=== PATIENT | female | born 1980 | race Caucasian/White ===

== ENCOUNTER 2023-03-11 13:06 | Outpatient (REF) | payer OTHER, SELFPAY ==
[2023-03-12 13:54] LABS: Transglutaminase Ab IgG <1.0 U/mL; Transglutaminase IgA <1.0 U/mL
== END 2023-03-11 13:07 | disposition home or self-care (01) ==
LOC: HO.LAB 13:06
PROVIDERS: PCP Hospitalist; Visit Provider Nurse Practitioner
DX: R19.7 Diarrhea, unspecified (principal)
CPT/HCPCS: 36415; 86003; 86364

== ENCOUNTER 2023-03-11 13:06 | Outpatient (AMB) | payer OTHER, SELFPAY ==
--- NOTE | 2023-03-11 13:08 | MHC.OFFVIS ---
Intake Vital Signs 03/11/23 13:38 Height 5 ft 8 in Weight 151 lb 3.794 oz BMI 23.0 BP 149/97 H Blood Pressure Location Rt brachial Position Sitting Pulse 105 H Intake Visit Reasons: Diarrhea constipation Intake Note: Patient presents to in office visit today as a new patient for diarrhea. CC: diarrhea, constipation, nausea, indigestion, abdominal pain, heartburn, GERD, and poor appetite. Patient reports onset of symptoms on December 27, 2022. She reports she is lactose intolerant and have been avoiding it, and she is also avoiding gluten. She states she was taking Prilosec for a while and that helped with symptoms. Hydramatic Mechanic Required: No Accompanied by: Self / Same As Patient Allergies Penicillins Allergy (Severe, Verified 03/11/23 13:42) Anaphylaxis HPI Diarrhea constipation HPI Details 42-year-old female here for initial evaluation of diarrhea. She is referred by Radha Griggs MD. of [facility]. PMX Smoker Depression/anxiety Migraines Constipation Nephrolithiasis History of gestational diabetes Obsessive-compulsive disorder TMJ * SURGICAL HISTORY pt denies LEEP Tubal ligation * ALLERGIES Penicillin-anaphylaxis * Fantastic.cl LABS: none in our system PCP labs , CBC shows macrocytosis of 101 (B 12 def no ETOH) otherwise normal, liver and renal panel normal, negative stool series including lactoferin and fecal calprotectin. B 12 was acutally low normal 02/01, TSH low normal. TODAY'S VISIT Her problems started suddenly in December, she was on a medication (cloperimide and tran) that had her with CIC, but when this was stopped all fo her problems started. She was seen in a local walk in, and she was given nausea medication, zofran, which helped with the nausea but no other sx. She was on the BRAT diet and has not been able to advance her diet. She tried going lactose and gluten free. This helped a little bit but she had continued nausea and HB. Then she started taking prilosec which helped the HB and some of the stomach pain. The pain is mostly in the lower abd and around the umbilicus, at times 6-7/10 but after prilosec is 5/10 all day every day. At times the pain is sharp and at times sore. The upper stomach hurts more in the am and she has more nausea, at times eating worsens it, but not always. She stopped taking prilosec r/t it said only 2 weeks on box. She has not nausea meds right now. CUrrently she wakes up every day and feels like I have the flu, and she has diarrhea for 1/2 of the day, she has constant nausea and dry heaving and abd pain. She says her PCP did stool samples and they didn't find anything. These were not supplied to me. She shows me pt portal. NO known FHX of similar sx except an paternal aunt with GB adn IBS. ROV 4 weeks. [facility] Medical History (Updated 03/11/23 @ 14:14 by NIEVES Stanley) History of gestational diabetes Surgical History (Updated 03/11/23 @ 13:44 by JAMIL Sotelo) History of tubal ligation S/P LEEP Family History (Updated 03/11/23 @ 13:45 by JAMIL Sotelo) Mother Cervical cancer Ovarian cancer Social History (Updated 03/11/23 @ 13:44 by JAMIL Sotelo) Alcohol intake: never Patient Tobacco Use Status: Former Tobacco user Quit Date: 2021 Tobacco use type: Cigarette Review of Systems Const Reports fatigue, Denies fever(s), Reports malaise, Denies night sweats, Denies poor appetite and Denies weight loss Eyes Details: glasses Reports requires corrective lenses ENT Reports Normal hearing present, Denies dental pain, Denies dysphagia, Denies hearing loss, Denies mouth pain, Denies odynophagia, Denies throat swelling, Denies tongue swelling and Reports other (Dentition adequate) Card Reports no additional complaints Resp Reports no additional complaints GI Reports abdominal pain, Denies melena, Reports bloating, Denies hematochezia, Denies constipation, Denies GI cramping, Denies dysphagia, Denies excessive flatus, Denies early satiety, Reports heartburn, Reports diarrhea, Denies nausea, Denies odynophagia, Denies vomiting and Denies hematemesis Musc Reports myalgias Skin/Breast Denies pruritus, Denies lesions, Denies rash and Denies jaundice Neuro Reports Normal hearing present and Denies Abnormal speech present Endo Reports fatigue Aller/Immun Denies throat swelling and Denies tongue swelling Physical Exam Vital Signs: Last Vital Signs Pulse 105 H 03/11/23 13:38 BP 149/97 H 03/11/23 13:38 BMI result Body Mass Index 23.0 Const General: cooperative, no acute distress, well developed and well groomed Nutritional Appearance: average body habitus and well nourished Orientation/consciousness: oriented to person, oriented to place and oriented to time Limitations: No language barrier HEENT Head: Yes normocephalic and Yes atraumatic Eyes General: appearance normal, both eyes and all related structures Pupils: Equal, round and reactive pupils present Neck Neck: Yes normal visual inspection and Yes no lymphadenopathy Thyroid: Thyroid normal Resp Effort & Inspection: normal respiratory effort and able to speak in complete sentences Auscultation: clear to auscultation bilaterally Cardio Rate: regular rate Rhythm: regular rhythm Heart sounds: Normal, physiologic split S2 sound present Peripheral pulses: radial pulses present and posterior tibial pulses present GI Inspection: No distended and No Abdominal panniculus present Palpation (GI): Soft to palpation, Tenderness to palpation present (GI) periumbilically, no guarding, not rigid and No hepatosplenomegaly present Percussion: Yes normal to percussion Auscultation: Hyperactive bowel sounds present Rectal Exam - Female: deferred Skin Other: multiple tattoos on upper body General skin exam: no rashes or lesions noted, turgor normal, skin not dry, no jaundice, No spider nevi and no striae Rashes: no rashes Nails: normal Neuro General: oriented to person, oriented to place and oriented to time Cranial nerves: Yes Equal, round and reactive pupils present and Yes Normal hearing present Speech: No Abnormal speech present Extrem General: Yes normal to inspection, No clubbing, No cyanosis and No edema Psych Appearance: grossly normal and well kempt Mental Status: mental status grossly normal Speech and movement: Normal speech and movement present Affect: normal affect Attitude: cooperative Thought process: Normal thought process present and not confabulating Thought content: Normal thought content present Insight: Fair insight present (Psych) Judgement: Fair judgement present (Psych) Assessment & Plan Assessment & Plan (1) GERD (gastroesophageal reflux disease): Code(s): K21.9 - Gastro-esophageal reflux disease without esophagitis Plan: Her problems started suddenly in December, she was on a medication (cloperimide and tran) that had her with CIC, but when this was stopped all fo her problems started. She was seen in a local walk in, and she was given nausea medication, zofran, which helped with the nausea but no other sx. She was on the BRAT diet and has not been able to advance her diet. She tried going lactose and gluten free. This helped a little bit but she had continued nausea and HB. Then she started taking prilosec which helped the HB and some of the stomach pain. The pain is mostly in the lower abd and around the umbilicus, at times 6-7/10 but after prilosec is 5/10 all day every day. At times the pain is sharp and at times sore. The upper stomach hurts more in the am and she has more nausea, at times eating worsens it, but not always. She stopped taking prilosec r/t it said only 2 weeks on box. She has not nausea meds right now. CUrrently she wakes up every day and feels like I have the flu, and she has diarrhea for 1/2 of the day, she has constant nausea and dry heaving and abd pain. She says her PCP did stool samples and they didn't find anything. These were not supplied to me. She shows me pt portal. NO known FHX of similar sx except an paternal aunt with GB adn IBS. ROV 4 weeks. (2) Diarrhea: Code(s): R19.7 - Diarrhea, unspecified (3) Nausea and vomiting: Code(s): R11.2 - Nausea with vomiting, unspecified Orders: Orders H Pylori Breath Test 03/11/23 R19.7 - Diarrhea, unspecified Transglutaminase IgA 03/11/23 R19.7 - Diarrhea, unspecified Rast Allergen 03/11/23 R19.7 - Diarrhea, unspecified Pancreatic Elastase-1 03/11/23 R19.7 - Diarrhea, unspecified US abdomen complete 03/11/23 R19.7 - Diarrhea, unspecified EGD/[place] Combo - GI Use Only 03/11/23 R19.7 - Diarrhea, unspecified, R11.2 - Nausea with vomiting, unspecified Transglutaminase Ab IgG 03/11/23 R19.7 - Diarrhea, unspecified Medications: New sucralfate (Carafate) 2 grams (2 x 1 gram) PO QAM 60 tabs 3RF R19.7 - Diarrhea, unspecified pantoprazole (Protonix) 40 mg PO DAILY 30 tabs 6RF 30 days K21.9 - Gastro-esophageal reflux disease without esophagitis Coding Level of Care Code New Pt Level 3 (48664) Diagnoses GERD (gastroesophageal reflux disease) K21.9 Diarrhea R19.7 Nausea and vomiting R11.2
[2023-03-11 13:38] VITALS: BP 149/97; PULSE 105; BMI 23.0
== END 2023-03-11 14:37 | disposition home or self-care (01) ==
PROVIDERS: PCP Hospitalist; Visit Provider Nurse Practitioner
DX: K21.9 Gastro-esophageal reflux disease without esophagitis (principal); R19.7 Diarrhea, unspecified; R11.2 Nausea with vomiting, unspecified
CPT/HCPCS: 99203

== ENCOUNTER 2023-03-27 10:18 | Outpatient (REF) | payer OTHER, SELFPAY ==
[2023-04-04 00:14] LABS: Pancreatic Elastase-1 >500 mcg/g
== END 2023-03-27 10:19 | disposition home or self-care (01) ==
LOC: HO.LNP 10:18
PROVIDERS: Visit Provider Nurse Practitioner
DX: R19.7 Diarrhea, unspecified (principal)
CPT/HCPCS: 82656

== ENCOUNTER 2023-04-07 09:07 | Outpatient (REF) | payer OTHER, SELFPAY ==
--- NOTE | ~2023-04-07 | US_ITS ---
EXAMINATION: US ABDOMEN COMPLETE CLINICAL INFORMATION: Abdominal pain. COMPARISON: None available. TECHNIQUE: Real-time imaging of the abdominal viscera. FINDINGS: PANCREAS: Normal. ABDOMINAL AORTA: The proximal, mid, and distal segments are normal in caliber. INFERIOR VENA CAVA: Visualized portions are normal. LIVER: Normal. The liver is normal in size. The liver contour is normal. Parenchymal echogenicity is normal. No focal hepatic lesion. There is no intrahepatic biliary duct dilatation seen. GALLBLADDER: Normal. The gallbladder is physiologically distended without evidence of stones, sludge, polyps, wall thickening or pericholecystic fluid. COMMON BILE DUCT: Normal in caliber measuring 0.4 cm in diameter. RIGHT KIDNEY: 2 mm nonobstructing calculus in the lower pole. No hydronephrosis or focal parenchymal lesions. The kidney measures 11.3 cm in maximum dimension. LEFT KIDNEY: Normal. No hydronephrosis. No renal calculi or focal parenchymal lesions. The kidney measures 10.5 cm in maximum dimension. SPLEEN: Normal. The spleen measures 11.6 cm in maximum dimension. FREE FLUID: None. US/US abdomen complete IMPRESSION: 2 mm nonobstructing calculus in the lower right kidney. No hydronephrosis.
== END 2023-04-07 09:08 | disposition home or self-care (01) ==
LOC: HO.US 09:07
PROVIDERS: Visit Provider Nurse Practitioner
DX: R19.7 Diarrhea, unspecified (principal)
CPT/HCPCS: 76700

== ENCOUNTER 2023-04-10 12:04 | Outpatient (AMB) | payer OTHER, SELFPAY ==
--- NOTE | 2023-04-10 12:07 | A.OFFVIS_ITS ---
Intake Vital Signs 04/10/23 12:15 Height 5 ft 8 in Weight 147 lb BMI 22.3 BP 110/66 Blood Pressure Location Lt brachial Position Sitting Pulse 110 H Intake Visit Reasons: 4 weeks follow up Intake Note: Patient 4 weeks follow up for diarrhea, lab, stool and US results Patient cc: Nauseas, acid reflex on and off, diarrhea and denies any other GI issues. Project Coordinator Rn Required: No Accompanied by: Self / Same As Patient Allergies Penicillins Allergy (Severe, Verified 04/10/23 12:07) Anaphylaxis HPI 4 weeks follow up HPI Details Assessment & Plan (1) GERD (gastroesophageal reflux diseas e): Code(s): K21.9 - Gastro-esophageal reflux disease without esophagitis Plan: Her problems started suddenly in December, she was on a medication (cloperimide and tran) that had her with CIC, but when this was stopped all fo her problems started. She was seen in a local walk in, and she was given nausea medication, zofran, which helped with the nausea but no other sx. She was on the BRAT diet and has not been able to advance her diet. She tried going lactose and gluten free. This helped a little bit but she had continued nausea and HB. Then she started taking prilosec which helped the HB and some of the stomach pain. The pain is mostly in the lower abd and around the umbilicus, at times 6-7/10 but after prilosec is 5/10 all day every day. At times the pain is sharp and at times sore. The upper stomach hurts more in the am and she has more nausea, at times eating worsens it, but not always. She stopped taking prilosec r/t it said only 2 weeks on box. She has not nausea meds right now. CUrrently she wakes up every day and feels like I have the flu, and she has diarrhea for 1/2 of the day, she has constant nausea and dry heaving and abd pain. She says her PCP did stool samples and they didn't find anything. These were not supplied to me. She shows me pt portal. NO known FHX of similar sx except an paternal aunt with GB adn IBS. ROV 4 weeks. (2) Diarrhea: Code(s): R19.7 - Diarrhea, unspecified (3) Nausea and vomiting: Code(s): R11.2 - Nausea with vomiting, unspecified Orders: Orders H Pylori Breath Te st 03/11/23 R19.7 - Diarrhea, unspecified Transglutaminase I gA 03/11/23 R19.7 - Diarrhea, unspecified Rast Allergen 03/11/23 R19.7 - Diarrhea, unspecified Pancreatic Elastas e-1 03/11/23 R19.7 - Diarrhea, unspecified US abdomen complet e 03/11/23 R19.7 - Diarrhea, unspecified EGD/[place] Combo - G I Use Only 03/11/23 R19.7 - Diarrhea, unspecified, R11.2 - Nausea with vom iting, unspecified Transglutaminase A b IgG 03/11/23 R19.7 - Diarrhea, unspecified Medications: New sucralfate (Carafa te) 2 grams (2 x 1 gra m) PO QAM 60 tabs 3RF R19.7 - Diarrhea, unspecified pantoprazole (Prot yeimy) 40 mg PO DAILY 30 tabs 6RF 30 days K21.9 - Gastro-eso phageal reflux dis ease without esoph agitis LABS: Laboratory Tests 03/11/23 03/27/23 14:53 08:00 Stool Pancreat Viola stase >500 Tiss Transglutamin IgG <1.0 Tiss Transglutamin IgA <1.0 RAST panel does not show any significant food allergies. H pylori stool antigen has not been completed of course we can always assess for this on the EGD. ULTRASOUND OF THE ABDOMEN 04/08/23 FINDINGS: PANCREAS: Normal. ABDOMINAL AORTA: The proximal, mid, and distal segments are normal in caliber. INFERIOR VENA CAVA: Visualized portions are normal. LIVER: Normal. The liver is normal in size. The liver contour is normal. Parenchymal echogenicity is normal. No focal hepatic lesion. There is no intrahepatic biliary duct dilatation seen. GALLBLADDER: Normal. The gallbladder is physiologically distended without evidence of stones, sludge, polyps, wall thickening or pericholecystic fluid. COMMON BILE DUCT: Normal in caliber measuring 0.4 cm in diameter. RIGHT KIDNEY: 2 mm nonobstructing calculus in the lower pole. No hydronephrosis or focal parenchymal lesions. The kidney measures 11.3 cm in maximum dimension. LEFT KIDNEY: Normal. No hydronephrosis. No renal calculi or focal parenchymal lesions. The kidney measures 10.5 cm in maximum dimension. SPLEEN: Normal. The spleen measures 11.6 cm in maximum dimension. FREE FLUID: None. US/US abdomen complete IMPRESSION: 2 mm nonobstructing calculus in the lowe r right kidney. No hydronephrosis. EGD/COLONOSCOPY BIOPSY TODAY'S VISIT She is taking the pantoprazole and the carafate and it is helping her a great deal. She has not had any CIC. She has been able to advance her diet. She is pleased with this. She will still have some residual nausea and pain but she is definitely coping much better. We review the labs and the ultrasound and there does not seem to be any reason to suspect food allergies, will exocrine pancreatic insufficiency or gallbladder disease as part of the differential diagnosis. I really think that this was probably a severe viral insult from which she will recover over time. When she is feeling much better if she wants to try stopping the Carafate she can do that cautiously. Has no heard re: procedures yet, sent request as I may have missed this. ROV 6 weeks. [facility] Medical History (Updated 03/11/23 @ 14:14 by NIEVES Stanley) History of gestational diabetes Surgical History History of tubal ligation S/P LEEP Family History Mother Cervical cancer Ovarian cancer Social History Alcohol intake: never Patient Tobacco Use Status: Former Tobacco user Quit Date: 2021 Tobacco use type: Cigarette Review of Systems Const Denies fatigue, Denies fever(s), Denies night sweats, Denies poor appetite and Denies weight loss ENT Reports Normal hearing present, Denies dental pain, Denies dysphagia, Denies hearing loss, Denies mouth pain, Denies odynophagia, Denies throat swelling, Denies tongue swelling and Reports other (Dentition adequate) Card Reports no additional complaints Resp Reports no additional complaints GI Reports abdominal pain, Denies melena, Denies bloating, Denies hematochezia, Denies constipation, Denies GI cramping, Denies dysphagia, Denies excessive flatus, Denies early satiety, Reports heartburn, Denies diarrhea, Reports nausea, Denies odynophagia, Denies vomiting and Denies hematemesis Skin/Breast Denies pruritus, Denies lesions, Denies rash and Denies jaundice Neuro Reports Normal hearing present and Denies Abnormal speech present Endo Denies fatigue Aller/Immun Denies throat swelling and Denies tongue swelling Physical Exam Vital Signs: Last Vital Signs Pulse 110 H 04/10/23 12:15 BP 110/66 04/10/23 12:15 BMI result Body Mass Index 22.3 Const General: cooperative, no acute distress, well developed and well groomed Nutritional Appearance: average body habitus and well nourished Orientation/consciousness: oriented to person, oriented to place and oriented to time Limitations: No language barrier HEENT Head: Yes normocephalic and Yes atraumatic Eyes General: appearance normal, both eyes and all related structures Pupils: Equal, round and reactive pupils present Neck Neck: Yes normal visual inspection and Yes no lymphadenopathy Thyroid: Thyroid normal Resp Effort & Inspection: normal respiratory effort and able to speak in complete sentences Auscultation: clear to auscultation bilaterally Cardio Rate: regular rate Rhythm: regular rhythm Heart sounds: Normal, physiologic split S2 sound present Peripheral pulses: radial pulses present and posterior tibial pulses present GI Inspection: No distended and No Abdominal panniculus present Palpation (GI): Soft to palpation, nontender, no guarding, not rigid and No hepatosplenomegaly present Percussion: Yes normal to percussion Auscultation: normal bowel sounds Rectal Exam - Female: deferred Skin General skin exam: no rashes or lesions noted, turgor normal, skin not dry, no jaundice, No spider nevi and no striae Rashes: no rashes Nails: normal Neuro General: oriented to person, oriented to place and oriented to time Cranial nerves: Yes Equal, round and reactive pupils present and Yes Normal hearing present Speech: No Abnormal speech present Extrem General: Yes normal to inspection, No clubbing, No cyanosis and No edema Psych Appearance: grossly normal and well kempt Mental Status: mental status grossly normal Speech and movement: Normal speech and movement present Affect: normal affect Attitude: cooperative Thought process: Normal thought process present and not confabulating Thought content: Normal thought content present Insight: Fair insight present (Psych) Judgement: Fair judgement present (Psych) Results Reviewed Results Reviewed: Laboratory Tests 03/11/23 03/27/23 14:53 08:00 Stool Pancreat Elastase >500 Tiss Transglutamin IgG <1.0 Tiss Transglutamin IgA <1.0 RAST panel does not show any significant food allergies. H pylori stool antigen has not been completed of course we can always assess for this on the EGD. ULTRASOUND OF THE ABDOMEN 04/08/23 FINDINGS: PANCREAS: Normal. ABDOMINAL AORTA: The proximal, mid, and distal segments are normal in caliber. INFERIOR VENA CAVA: Visualized portions are normal. LIVER: Normal. The liver is normal in size. The liver contour is normal. Parenchymal echogenicity is normal. No focal hepatic lesion. There is no intrahepatic biliary duct dilatation seen. GALLBLADDER: Normal. The gallbladder is physiologically distended without evidence of stones, sludge, polyps, wall thickening or pericholecystic fluid. COMMON BILE DUCT: Normal in caliber measuring 0.4 cm in diameter. RIGHT KIDNEY: 2 mm nonobstructing calculus in the lower pole. No hydronephrosis or focal parenchymal lesions. The kidney measures 11.3 cm in maximum dimension. LEFT KIDNEY: Normal. No hydronephrosis. No renal calculi or focal parenchymal lesions. The kidney measures 10.5 cm in maximum dimension. SPLEEN: Normal. The spleen measures 11.6 cm in maximum dimension. FREE FLUID: None. US/US abdomen complete IMPRESSION: 2 mm nonobstructing calculus in the lower right kidney. No hydronephrosis Assessment & Plan Assessment & Plan (1) Nausea and vomiting: Code(s): R11.2 - Nausea with vomiting, unspecified Plan: She is taking the pantoprazole and the carafate and it is helping her a great deal. She has not had any CIC. She has been able to advance her diet. She is pleased with this. She will still have some residual nausea and pain but she is definitely coping much better. We review the labs and the ultrasound and there does not seem to be any reason to suspect food allergies, will exocrine pancreatic insufficiency or gallbladder disease as part of the differential diagnosis. I really think that this was probably a severe viral insult from which she will recover over time. When she is feeling much better if she wants to try stopping the Carafate she can do that cautiously. Has no heard re: procedures yet, sent request as I may have missed this. ROV 6 weeks. EGD/COLONOSCOPY BIOPSY The (2) Diarrhea: Code(s): R19.7 - Diarrhea, unspecified (3) GERD (gastroesophageal reflux disease): Code(s): K21.9 - Gastro-esophageal reflux disease without esophagitis Coding Level of Care Code Est Pt Level 3 (92167) Diagnoses Nausea and vomiting R11.2 Diarrhea R19.7 GERD (gastroesophageal reflux disease) K21.9
[2023-04-10 12:15] VITALS: BP 110/66; PULSE 110; BMI 22.3
== END 2023-04-10 12:28 | disposition home or self-care (01) ==
PROVIDERS: PCP Hospitalist; Visit Provider Nurse Practitioner
DX: R11.2 Nausea with vomiting, unspecified (principal); R19.7 Diarrhea, unspecified; K21.9 Gastro-esophageal reflux disease without esophagitis
CPT/HCPCS: 99213

== ENCOUNTER → 2023-04-10 12:04 | Outpatient (BNVA) | payer OTHER, SELFPAY | PROVIDERS: PCP Hospitalist; Visit Provider Nurse Practitioner | DX: R11.2 Nausea with vomiting, unspecified (principal); R19.7 Diarrhea, unspecified; K21.9 Gastro-esophageal reflux disease without esophagitis | CPT/HCPCS: 99212 ==

== ENCOUNTER 2023-05-22 10:24 | Outpatient (AMB) | payer OTHER, SELFPAY ==
[2023-05-22 10:36] VITALS: BP 128/70; PULSE 109; BMI 21.4
--- NOTE | 2023-05-22 10:36 | MHC.OFFVIS ---
Intake Vital Signs 05/22/23 10:36 Height 5 ft 8 in Weight 140 lb 10.479 oz BMI 21.4 BP 128/70 Blood Pressure Location Rt brachial Position Sitting Pulse 109 H Intake Visit Reasons: 6 week follow up Intake Note: Patient presents to in office visit today in follow up of GERD. CC: Patient reports diarrhea is gone, she still has some nausea and GERD on and off but states she has been taking abx d/t dental work. Denies other GI concerns today. Organizational Development Specialist Required: No Accompanied by: Self / Same As Patient Allergies Penicillins Allergy (Severe, Verified 04/10/23 12:07) Anaphylaxis HPI 6 week follow up HPI Details .Assessment & Plan (1) Nausea and vomiting: Code(s): R11.2 - Nausea with vomiting, unspecified Plan: She is taking the pantoprazole and the carafate and it is helping her a great deal. She has not had any CIC. She has been able to advance her diet. She is pleased with this. She will still have some residual nausea and pain but she is definitely coping much better. We review the labs and the ultrasound and there does not seem to be any reason to suspect food allergies, will exocrine pancreatic insufficiency or gallbladder disease as part of the differential diagnosis. I really think that this was probably a severe viral insult from which she will recover over time. When she is feeling much better if she wants to try stopping the Carafate she can do that cautiously. Has no heard re: procedures yet, sent request as I may have missed this. ROV 6 weeks. . (2) Diarrhea: Code(s): R19.7 - Diarrhea, unspecified (3) GERD (gastroesophageal reflux disease): Code(s): K21.9 - Gastro-esophageal reflux disease without esophagitiss. EGD/COLONOSCOPY SCHEDULE FOR 05/26 BIOPSY CORRESPONDENCE On 05/21/23 @ 15:45 Milady Torres Wrote To Mikel (2) just I called patient today to review diet and prep for double on Saturday 05/26. She reports feeling better, no longer having issues and will discuss this at tomorrow appt if she still should have the procedure. On 04/15/23 @ 10:07 Roxana Aguilera Wrote To [facility] scheduled 05/19/23, mailed instructions has meds already. aware will need a ride home. Roxana Aguilera completed item. On 04/10/23 @ 12:24 Shadia Morin Wrote To [facility] Needs EGD/colonoscopy scheduled TODAY'S VISIT She has greatly improved utilizing the pantoprazole the Carafate! With this she is able to have a normal life in even go out to eat and she is quite happy with this. With this information we will cancel the EGD/colonoscopy as it is likely not necessary for diagnostic reasons. She was counseled that she will need a colonoscopy at age 47. She is agreeable to this at that time. Return office visit in 6 months. [facility] Medical History History of gestational diabetes Surgical History History of tubal ligation S/P LEEP Family History Mother Cervical cancer Ovarian cancer Social History Alcohol intake: never Patient Tobacco Use Status: Former Tobacco user Quit Date: 2021 Tobacco use type: Cigarette Review of Systems Const Denies fatigue, Denies fever(s), Denies night sweats, Denies poor appetite and Denies weight loss ENT Reports Normal hearing present, Denies dental pain, Denies dysphagia, Denies hearing loss, Denies mouth pain, Denies odynophagia, Denies throat swelling, Denies tongue swelling and Reports other (Dentition adequate) Card Reports no additional complaints Resp Reports no additional complaints GI Denies abdominal pain, Denies melena, Denies bloating, Denies hematochezia, Denies constipation, Denies GI cramping, Denies dysphagia, Denies excessive flatus, Denies early satiety, Reports heartburn, Reports diarrhea, Denies nausea, Denies odynophagia, Denies vomiting and Denies hematemesis Skin/Breast Denies pruritus, Denies lesions, Denies rash and Denies jaundice Neuro Reports Normal hearing present and Denies Abnormal speech present Endo Denies fatigue Aller/Immun Denies throat swelling and Denies tongue swelling Physical Exam Vital Signs: Last Vital Signs Pulse 109 H 05/22/23 10:36 BP 128/70 05/22/23 10:36 BMI result Body Mass Index 21.4 Const General: cooperative, no acute distress, well developed and well groomed Nutritional Appearance: average body habitus and well nourished Orientation/consciousness: oriented to person, oriented to place and oriented to time Limitations: No language barrier HEENT Head: Yes normocephalic and Yes atraumatic Eyes General: appearance normal, both eyes and all related structures Pupils: Equal, round and reactive pupils present Neck Neck: Yes normal visual inspection and Yes no lymphadenopathy Thyroid: Thyroid normal Resp Effort & Inspection: normal respiratory effort and able to speak in complete sentences Auscultation: clear to auscultation bilaterally Cardio Rate: regular rate Rhythm: regular rhythm Heart sounds: Normal, physiologic split S2 sound present Peripheral pulses: radial pulses present and posterior tibial pulses present GI Inspection: No distended and No Abdominal panniculus present Palpation (GI): Soft to palpation, nontender, no guarding, not rigid and No hepatosplenomegaly present Percussion: Yes normal to percussion Auscultation: normal bowel sounds Rectal Exam - Female: deferred Skin General skin exam: no rashes or lesions noted, turgor normal, skin not dry, no jaundice, No spider nevi and no striae Rashes: no rashes Nails: normal Neuro General: oriented to person, oriented to place and oriented to time Cranial nerves: Yes Equal, round and reactive pupils present and Yes Normal hearing present Speech: No Abnormal speech present Extrem General: Yes normal to inspection, No clubbing, No cyanosis and No edema Psych Appearance: grossly normal and well kempt Mental Status: mental status grossly normal Speech and movement: Normal speech and movement present Affect: normal affect Attitude: cooperative Thought process: Normal thought process present and not confabulating Thought content: Normal thought content present Insight: Fair insight present (Psych) Judgement: Fair judgement present (Psych) Assessment & Plan Assessment & Plan (1) Nausea and vomiting: Code(s): R11.2 - Nausea with vomiting, unspecified Plan: She has greatly improved utilizing the pantoprazole the Carafate! With this she is able to have a normal life in even go out to eat and she is quite happy with this. With this information we will cancel the EGD/colonoscopy as it is likely not necessary for diagnostic reasons. She was counseled that she will need a colonoscopy at age 47. She is agreeable to this at that time. Return office visit in 6 months. (2) Diarrhea: Code(s): R19.7 - Diarrhea, unspecified (3) GERD (gastroesophageal reflux disease): Code(s): K21.9 - Gastro-esophageal reflux disease without esophagitis Medications: Refilled sucralfate (Carafate) 2 grams (2 x 1 gram) PO QAM 60 tabs 6RF R19.7 - Diarrhea, unspecified pantoprazole (Protonix) 40 mg PO DAILY 30 days 30 tabs 6RF K21.9 - Gastro-esophageal reflux disease without esophagitis Discontinued peg 3350-electrolytes [id number] -5.86 gram Refer to prep instructions given/ mailed to you from GI OFFICE. until fecal effluent is clear Discontinued Reason: Doctor's Order 240 mL PO Q10M 4,000 mL 0RF Coding Level of Care Code Est Pt Level 3 (94149) Diagnoses Nausea and vomiting R11.2 Diarrhea R19.7 GERD (gastroesophageal reflux disease) K21.9
== END 2023-05-22 10:55 | disposition home or self-care (01) ==
PROVIDERS: PCP Hospitalist; Visit Provider Nurse Practitioner
DX: R11.2 Nausea with vomiting, unspecified (principal); R19.7 Diarrhea, unspecified; K21.9 Gastro-esophageal reflux disease without esophagitis
CPT/HCPCS: 99213

== ENCOUNTER → 2023-05-22 10:24 | Outpatient (BNVA) | payer OTHER, SELFPAY | PROVIDERS: PCP Hospitalist; Visit Provider Nurse Practitioner | DX: K21.9 Gastro-esophageal reflux disease without esophagitis (principal); R11.2 Nausea with vomiting, unspecified; R19.7 Diarrhea, unspecified | CPT/HCPCS: 99212 ==